=== PATIENT | male | born 1960 | race Caucasian/White ===

== ENCOUNTER 2024-03-16 07:56 | Outpatient (RCR) | payer OTHER, SELFPAY | END 2024-09-12 23:59 | disposition home or self-care (01) | LOC: CCIC 07:56 | PROVIDERS: Visit Provider Clinical Nurse Specialist | DX: C34.92 Malignant neoplasm of unspecified part of left bronchus or lung (principal) | CPT/HCPCS: 99211 ==

== ENCOUNTER 2024-03-17 14:54 | Outpatient (CLI) | payer OTHER, SELFPAY ==
--- NOTE | 2024-03-17 15:00 | CRLHL7_ITS ---
For Patients: As a result of the Century Cures Act, medical imaging exams and procedure reports are released immediately into your electronic medical record. You may view this report before your referring provider. If you have questions, please contact your health care provider. INDICATION: Malignant neoplasm of bronchus, multiple left lung sites. TECHNIQUE: CT chest with 75 cc Isovue 370 IV contrast. COMPARISON: None. FINDINGS: Lungs and pleura: Within the left upper lobe, multiple foci of nodular and ground-glass consolidation, for example posterior nodule measuring 10.6 x 7.7 mm (3/47) and anterior nodule measuring 12.0 x 8.0 mm (3/57). There is an indeterminate 3.2 mm right upper lobe nodule as well (3/54). Upper lobe predominant centrilobular emphysema. No pleural effusions, pleural thickening, or pneumothorax. Heart and vasculature: Heart size is normal. Thoracic aorta and pulmonary artery are normal in caliber. Lymph nodes/mediastinum: No mediastinal, hilar, or axillary adenopathy. Chest wall: Right chest wall port with central catheter that terminates in the right atrium. No masses. Upper abdomen: Small hiatal hernia. Hepatic cysts and subcentimeter hypodense lesions that are too small to characterize. Right adrenal nodule measuring 11.7 mm (2/108). Scattered vascular calcifications. Bones: No acute or suspicious lesions. IMPRESSION: 1. Multiple foci of nodular and ground-glass consolidation within the left upper lobe of the lung. While these lesions could be consistent with malignancy as described in the indication, infectious/inflammatory etiologies could not be ruled out with this appearance alone. Correlate with clinical history and prior exams (unavailable at the time of dictation) to distinguish. 2. Right adrenal nodule measuring 11.7 mm that is incompletely characterized on this single phase postcontrast exam. MR or CT adrenal protocol could be considered for more definitive evaluation, if clinically helpful. Please note that all CT scans at this facility use dose modulation, iterative reconstruction, and/or weight-based dosing when appropriate to reduce radiation dose to as low as reasonably achievable. Dictated by Andrae Werner MD @ 03/23/2024 6:39:45 PM (Electronically Signed)
== END 2024-03-17 14:55 | disposition home or self-care (01) ==
LOC: CT 14:55
PROVIDERS: Visit Provider Radiology Radiation Oncology
DX: C34.82 Malignant neoplasm of overlapping sites of left bronchus and lung (principal); R91.8 Other nonspecific abnormal finding of lung field; E27.9 Disorder of adrenal gland, unspecified
CPT/HCPCS: 71260; Q9967